=== PATIENT | male | born 1950 | race African-American/Black ===

== ENCOUNTER 2018-02-28 08:08 | Emergency (ER) | payer OTHER ==
[~2018-02-28] VITALS: Ht 165.1 cm; Wt 96.0 kg
[2018-02-28 08:49] LABS: HEMATOCRIT 45.4 % (39.0-50.0); HEMOGLOBIN 14.4 g/dl (14.0-18.0); IMMATURE GRANULOCYTES 0.7 % (0.0-1.0); MEAN CELL VOLUME 86.8 fL CALC (80.0-100.0); MEAN CORPUSCULAR HGB 27.5 pG CALC (26.0-32.0); MEAN CORPUSCULAR HGB CONC 31.7 g/L CALC (32.0-36.0); NEUT# 6.29 thou/uL (1.82-7.42); RED BLOOD COUNT 5.23 mill/uL (4.70-6.10); RED CELL DISTRI WIDTH 14.1 % (11.5-15.5)
[2018-02-28 08:59] LABS: ALBUMIN 4.1 g/dL (3.2-5.0); ALKALINE PHOSPHATASE 100 u/l (38-126); ANION GAP 20 (6-22 (CALC)); BILIRUBIN, TOTAL 0.4 mg/dL (0.0-1.4); BUN 12 mg/dL (8-23); BUN/CREATININE RATIO 22 (12-20 (CALC)); CARBON DIOXIDE 24 mmol/l (22-30); CHLORIDE 105 mmol/l (95-108); CREATININE 0.6 mg/dL (0.7-1.3); GFR > 60 ML/MIN (>=60 (CALC)); GFR FOR AFR.AMER. > 60 ML/MIN (>=60 (CALC)); POTASSIUM 4.6 mmol/l (3.5-5.1); SGOT/AST 25 u/l (19-48); SGPT/ALT 30 u/l (11-66); SODIUM 144 mmol/l (137-146); TOTAL PROTEIN 7.3 g/dL (6.3-8.2)
[2018-02-28] MEDS ORDERED: ENALAPRIL5 MG PO (09:28)
[2018-02-28 09:31] LABS: TSH, 3RD GENERATION 0.33 uIU/mL (0.47 - 4.68)
[2018-02-28] MEDS ORDERED: METFORMIN500 MG PO (09:33)
[2018-02-28] MEDS ORDERED: METOPROL TAR25 MG PO (09:33)
[2018-02-28] MEDS ORDERED: SIMVASTATIN20 MG PO (09:34)
[2018-02-28] MEDS ORDERED: GLIPIZIDE5 MG PO (09:34)
[2018-02-28 09:41] VITALS: BP 138/82
== END 2018-02-28 09:55 | disposition home or self-care (01) | DRG 310 ==
LOC: ED 08:08
PROVIDERS: Emergency Medicine
DX: I47.1 Supraventricular tachycardia (principal); I10 Essential (primary) hypertension; E11.9 Type 2 diabetes mellitus without complications; I25.2 Old myocardial infarction; F17.210 Nicotine dependence, cigarettes, uncomplicated